=== PATIENT | female | born 1945 | race Caucasian/White ===

== ENCOUNTER → 2017-12-12 10:02 | Outpatient (CLI) | payer MEDICARE, SELFPAY ==
[2017-12-12 12:22] LABS: Alanine Aminotransferase 21 U/L (12-78); Albumin Level 3.7 gm/dL (3.4-5.0); Albumin/Globulin Ratio 1.2 (1.1-1.8); Alkaline Phosphatase 65 U/L (46-116); Anion Gap 13.7 mEq/L (5-15); Aspartate Amino Transferase 16 U/L (15-37); Bilirubin,Total 0.4 mg/dL (0.2-1.0); Blood Urea Nitrogen 11 mg/dL (7-18); Carbon Dioxide 27 mmol/L (21.0-32.0); Chloride 111 mmol/L (98-107); Creatinine,Serum 0.97 mg/dL (0.55-1.02); Estimated Glomerular Filt Rate 56 ml/min (>60); Free T4 (Free Thyroxine) 1.02 ng/dl (0.76-1.46); GFR (African American) 68 ML/MIN (>60); Globulin 3.1 gm/dl (1.3-3.2); Glucose 88 mg/dL (74-106); Potassium 3.7 mmoL/L (3.5-5.1); Sodium 148 mmol/L (136-145); T4 (Thyroxine) 8.9 ug/dl (4.7-13.3); Thyroid Stimulating Hormone 2.04 uIU/ml (0.358-3.740); Total Protein,Serum 6.8 gm/dL (6.4-8.2); Triiodothryronine (T3) Uptake 34 % (31-39)
[2017-12-13 05:19] LABS: Thyroid Peroxidase Antibodies 13 IU/mL (0-34)
[2017-12-13 19:11] LABS: Triiodothyronine (T3) Free 2.4 pg/mL (2.0-4.4)
[2017-12-15 02:17] LABS: Calcitonin <2.0 pg/mL (0.0-5.0)
[2018-03-06 20:00] LABS: Thyroid Stimulating Immunoglob <0.10
== END ==
PROVIDERS: PCP Nurse Practitioner; Visit Provider Otolaryngology
DX: E04.1 Nontoxic single thyroid nodule (principal); E03.9 Hypothyroidism, unspecified
CPT/HCPCS: 36415; 80053; 82308; 83520; 84436; 84439; 84443; 84479; 84481; 86376

== ENCOUNTER → 2017-12-22 09:52 | Outpatient (CLI) | payer MEDICARE, SELFPAY ==
--- NOTE | 2017-12-22 09:59 | US_ITS ---
US organ site (thyroid right lobe) US thyroid, US biopsy guidance : Ordering Physician: Ta Lyles MD HISTORY: ITS.REASON: Thyroid nodule NEOPLASM OF THYROIDthyroid. Nodule: 72 years: Female TECHNIQUE: Ultrasound thyroid with subsequent FNA left lobe nodule ========FINDINGS AND PROCEDURE: = ULTRASOUND THYROID-attention left lobe thyroid COMPARISON is made to previous ultrasound thyroid 08/20/2017 from this facility. The discrete mixed density thyroid nodule was seen at left lobe measuring up to 1.8 cm maximally. Mid and upper portion anterior left lobe. The mass was identified& best approach for access to perform aspiration biopsy of this nodule. Scanning by Dr. Burgos and technologist MW ULTRASOUND-GUIDED FNA BIOPSY-left thyroid nodule Following sterile preparation as well as local skin, and cautious deeper placement of Xylocaine anesthetic . Under ultrasound guidance the biopsy needle, was advanced to the nodule and positioned. Needle tip was observed passing into the nodule on each 3 FNA biopsies passes. FNA specimen material obtained and subsequently submitted to cytopathology. Patient tolerated procedure well. IMPRESSION: Dominant left lobe thyroid nodule identified and localized. . 1.8 cm cm nodule left lobe sampled with 3 FNA biopsy passes today CYTOPATHOLOGY REPORT: Negative for malignant cells. Benign follicular nodule
== END ==
PROVIDERS: Family Provider Emergency Medicine; PCP Nurse Practitioner; Visit Provider Otolaryngology
DX: E04.1 Nontoxic single thyroid nodule (principal)
CPT/HCPCS: 10022; 76536; 76942; 88173; 88305

== ENCOUNTER → 2018-04-06 07:34 | Outpatient (CLI) | payer MEDICARE, SELFPAY ==
--- NOTE | 2018-04-06 07:38 | US_ITS ---
US thyroid HISTORY: Follow-up thyroid nodule ITS.REASON: hx thyroid nodule left 1.8cm ORDERING PHYSICIAN: Ta Lyles MD PATIENT AGE: 73 years Comparison: 08/20/2017 FINDINGS: The right lobe is 2.8 x 1.6 x 1 cm. 3 x 4 mm hypoechoic nodule superiorly and medially not demonstrated on the previous exam 3 mm hypoechoic nodule lower pole unchanged. The left lobe is 3.9 x 1.4 x 2.1 cm. A complex nodule present in the mid aspect of the left lobe with both cystic and solid component measuring 1.8 x 1.3 cm not significantly changed. 7 mm isoechoic nodule medial aspect left lobe unchanged. IMPRESSION: Overall no change in the dominant complex cystic nodule of the left lobe of the thyroid gland with other small bilateral thyroid nodules noted
== END ==
PROVIDERS: Family Provider Emergency Medicine; PCP Nurse Practitioner; Visit Provider Otolaryngology
DX: E04.1 Nontoxic single thyroid nodule (principal)
CPT/HCPCS: 76536

== ENCOUNTER → 2018-07-24 07:54 | Outpatient (CLI) | payer MEDICARE, SELFPAY ==
--- NOTE | 2018-07-24 08:05 | NVE_ITS ---
Venous Exam Indications: 729.5 Pain in limb. IMPRESSIONS 1. There is no evidence of significant Reflux. 2. No evidence of deep or superficial vein thrombosis involving the left lower extremity History: Left lower extremity pain. Swelling of the left lower extremity. Left lower extremity venous duplex evaluation. Doppler flow study including spectral analysis, color and mitchell scale imaging. Location: Vascular laboratory. Patient status: Outpatient. Tables: Venous flow and imaging: + +-------+ + Location Overall Flow properties + +-------+ + Left common femoral Patent Normal phasicity; spontaneous; normal augmentation; compressible + +-------+ + Left saphenofemoral junction Patent Compressible + +-------+ + Left profunda femoral Patent Compressible + +-------+ + Left femoral Patent Normal phasicity; spontaneous; normal augmentation; compressible + +-------+ + Left greater saphenous Patent Normal phasicity; spontaneous; normal augmentation; compressible + +-------+ + Left popliteal Patent Normal phasicity; spontaneous; normal augmentation; compressible + +-------+ + Left posterior tibial Patent Compressible + +-------+ + Left peroneal Patent Compressible + +-------+ + Left gastrocnemius Patent Compressible + +-------+ + Left soleal Patent Compressible + +-------+ + (Report amended ) Electronically signed by: Varun Pisano [id number]
== END ==
PROVIDERS: Family Provider Emergency Medicine; PCP Nurse Practitioner; Visit Provider Nurse Practitioner
DX: M79.605 Pain in left leg (principal); M79.89 Other specified soft tissue disorders
CPT/HCPCS: 93971

== ENCOUNTER → 2018-09-21 12:56 | Outpatient (POV) | payer MEDICARE, SELFPAY | PROVIDERS: Visit Provider Nurse Practitioner Acute Care | DX: Z00.00 Encounter for general adult medical examination without abnormal findings (principal) ==

== ENCOUNTER → 2019-01-15 12:51 | Outpatient (CLI) | payer MEDICARE, SELFPAY ==
[2019-01-15 14:19] LABS: Alanine Aminotransferase 22 U/L (12-78); Albumin Level 3.8 gm/dL (3.4-5.0); Albumin/Globulin Ratio 1.3 (1.1-1.8); Alkaline Phosphatase 61 U/L (46-116); Anion Gap 13.4 mEq/L (5-15); Aspartate Amino Transferase 21 U/L (15-37); Bilirubin,Total 0.5 mg/dL (0.2-1.0); Blood Urea Nitrogen 11 mg/dL (7-18); Calcium 9.1 mg/dL (8.5-10.1); Carbon Dioxide 27 mmol/L (21.0-32.0); Chloride 108 mmol/L (98-107); Chol/HDL Ratio 2.9 (1-3.5); Cholesterol 187 mg/dL (140-200); Estimated Glomerular Filt Rate 70 ml/min (>60); Free T4 (Free Thyroxine) 0.88 ng/dl (0.76-1.46); GFR (African American) 85 ML/MIN (>60); Glucose 91 mg/dL (74-106); HDL Cholesterol 64 mg/dL (29-89); LDL Cholesterol 103 mg/dL (0-130); Potassium 4.4 mmoL/L (3.5-5.1); Sodium 144 mmol/L (136-145); Thyroid Stimulating Hormone 2.27 uIU/ml (0.358-3.740); Total Protein,Serum 6.8 gm/dL (6.4-8.2); Triglycerides 101 mg/dL (30-200); VLDL Cholesterol 20 mg/dL (0-40)
== END ==
PROVIDERS: Visit Provider Nurse Practitioner
DX: I10 Essential (primary) hypertension (principal); R60.9 Edema, unspecified; E78.2 Mixed hyperlipidemia; E03.9 Hypothyroidism, unspecified; R06.09 Other forms of dyspnea
CPT/HCPCS: 36415; 80053; 80061; 83880; 84439; 84443

== ENCOUNTER → 2019-03-30 16:02 | Outpatient (CLI) | payer MEDICARE, SELFPAY ==
[2019-03-30 16:51] LABS: Basophils % 0.6 % (0.1-2.0); Eosinophils # 0.9 K/mm3 (0.0-0.4); Eosinophils % 14.5 % (0.1-12.0); Hematocrit 38.8 % (37.0-47.0); Hemoglobin 13.1 g/dL (12.2-16.2); Lymphocytes # 2.1 K/mm3 (0.7-4.5); Lymphocytes % 34.2 % (10-50); Mean Corpuscular HGB Conc 33.7 g/dL (31.8-35.4); Mean Corpuscular Hemoglobin 28.3 pg (27.0-31.2); Mean Corpuscular Volume 83.9 fl (81-99); Monocytes # 0.4 K/mm3 (0.1-1.0); Monocytes % 5.8 % (1.7-9.3); Neutrophils # 2.7 K/mm3 (1.8-7.8); Neutrophils % 44.9 % (37.0-80.0); Platelet Count 275 K/mm3 (142-424); Red Blood Count 4.62 M/mm3 (4.20-5.40); Red Cell Distribution Width 13.6 % (11.5-17.5)
[2019-03-30 17:10] LABS: Anion Gap 14.5 mEq/L (5-15); Blood Urea Nitrogen 10 mg/dL (7-18); Carbon Dioxide 27 mmol/L (21.0-32.0); Chloride 107 mmol/L (98-107); Creatinine,Serum 0.91 mg/dL (0.55-1.02); Estimated Glomerular Filt Rate 60 ml/min (>60); GFR (African American) 73 ML/MIN (>60); Glucose 91 mg/dL (74-106); Potassium 4.5 mmoL/L (3.5-5.1); Sodium 144 mmol/L (136-145)
== END ==
PROVIDERS: Visit Provider Urology
DX: Z01.818 Encounter for other preprocedural examination (principal); N39.3 Stress incontinence (female) (male)
CPT/HCPCS: 36415; 80048; 85025

== ENCOUNTER 2019-04-01 11:50 | Day surgery (SDC) | payer MEDICARE, SELFPAY ==
[2019-03-30 13:28] VITALS: BMI 28.3
[2019-04-01] VITALS (10 sets, daily range): BP systolic 134–191; BP diastolic 63–96; PULSE 61–76; RESP 18; TEMP 36.3–36.7; O2SAT 98–100
--- NOTE | 2019-04-01 12:34 | P.PN_ITS ---
[facility] Anesthesia Checklist - Structural Data Admitted From: Home Planned Operative Procedure/s: tvto Consent for Planned Operative Procedure(s) Verified: Yes - Airway Assessment C-Spine Mobility Assessed: Yes TMJ Mobility Assessed: Yes Dentition: Dentures-good fit - Neurological Assessment Level of Consciousness: Awake, Alert, Appropriate - Anesthesia Plan Anesthesia Risk discussed: Yes Anesthesia Plan: Verified ASA Class: II Anesthesia Type: General [facility] History I have reviewed the patient's past medical history: Yes Medical History: Reports:: Asthma, Cancer (cervical), Hyperlipidemia, Hypertension, Lung Disease Denies:: Diabetes Mellitus Type 1, Diabetes Mellitus Type 2, Internal Pacemaker, MRSA, Seizures *Have you ever received a pneumonia vaccine?: Yes *Have you received a flu vaccine this season?: Yes Other Medical History: Reports: Arthritis. Denies: Blood Transfusion Reaction Other Surgeries: Yes: Hysterectomy-Total, Thyroidectomy, Other. No: Pacemaker Amputation: No - *Social History Educational Level: Completed GED/General Educational Development Smoking Status: Former smoker Tobacco Type: cigarettes # Packs/Day (cigarettes): 0 #Yrs smoked (if former smoker): 30 Alcohol Intake: never Alcohol Intake Frequency:: 0-2 drinks per day Substance Use Type: denies use *Occupational Status:: retired Housing: house Household Members: significant other *Travel in the last 8 weeks: None - Psychiatric History Expresses thoughts of harming self/others: None Suicide Plan Description: No Plan Family Hx:: Hypertension, Adopted
--- NOTE | 2019-04-01 14:48 | HMH.ANESI ---
[facility] Anesthesia Record Part I Intake, IV Amount: 400 Estimated blood loss (mL): 0 Urine output (mL): 0 Blood Products used (#): none Blood Pressure: 134/71 SaO2: 99 Pulse Rate: 74 Respiratory Rate: 18 Temperature: 97.3 F Patient is:: Awake, Stable Stable to PACU at:: 14:44
--- NOTE | 2019-04-01 14:49 | HMH.ANESII ---
[facility] Anesthesia Record Part II Discharge Time: 15:14 Destination: Surgical Day Care (OP Surgery) PACU nurse assessment reviewed?: Yes Patient Condition:: Good Anesthesia Complications:: None Swallowing reflex intact?: Yes Cyanosis?: No
--- NOTE | 2019-04-01 14:56 | HMH.OPNOTE ---
Date of procedure: 04/01/19 Pre-op Diagnosis:: Stress urinary incontinence Post-op Diagnosis:: Same Procedure performed:: Trans-obturator tape placement with cystoscopy Surgeon:: Philip Welch MD CLIENT SUPPORT REPRESENTATIVE:: Other Anesthesia: GETA Estimated blood loss (mL): 10 Clinical Note:: 74-year-old white female with a stress urinary incontinence Operative findings:: Patient with normal vaginal introitus and normal urethra with history of a stress urinary incontinence who desires treatment. Operative note:: Patient taken to the operating room after informed consent was obtained. He was placed on the operating table in the supine position general anesthesia administered. Preoperative antibiotics and sequential compression devices placed. She was then placed into the dorsolithotomy position prepped and draped in standard surgical fashion. A 16 [place] Willoughby catheter passed into the urethra and the bladder drained. The catheter was then clamped and placed on the abdomen. Local anesthetic placed into our thigh incisions which were at the insertion of the adductor longus and 8 and on a plane equal with the clitoris bilaterally. Local anesthetic also placed into the anterior vaginal wall. Stab incisions were made in the marked areas on the thigh. Incision was then made in the anterior vaginal wall and the periurethral space was developed sharply and bluntly with Metzenbaums and a finger dissection. However [employer] halo obtryx trocar then passed into the right thigh incision and around the issue pubic rami and brought through the vaginal incision guided by my finger which was in the incision and just under the ischio pubic ramus. There is no evidence of any vaginal injury. One end of the trans-obturator tape was placed onto the end of the trocar was brought back out through the skin. The left side was then performed in the same manner. The trocar was passed around the ischio pubic ramus and brought out through the vaginal incision. No evidence of vaginal fornix injury was noted. The other end of the sling was placed on a visit to the trocar and brought out through the skin incision. The tape was snugged up to the urethra and a clamp was placed between the urethra and the sling while we snugged it up. The ends of the sleeve were then removed from the sling. The clamp removed and there was noted to be good placement of the sling. The ends of the sling were cut off at the thigh and the vaginal wall incision was closed with a running 2-0 chromic. Dermabond placed on the thigh incisions and the back vaginal vagina was packed with vaginal packing. Sponge needle instrument counts were correct at the end the case. There is minimal blood loss. Willoughby catheter was kept in the bladder to the recovery room and a voiding trial will be performed prior. Instructions were given to remove the vaginal packing in the a.m. Condition: stable Disposition: PACU Specimens:: None Complications:: None
--- NOTE | 2019-04-01 15:24 | SUR.PHASEI ---
1515-60ml saline injected through mccarty catheter into bladder per MD orders.
== END 2019-04-01 16:20 | disposition home or self-care (01) ==
PROVIDERS: PCP Nurse Practitioner; Visit Provider Urology
PROC: 0TJB8ZZ Inspection of Bladder, Via Natural or Artificial Opening Endoscopic (ICD-10-PCS; CPT 52000; 2019-04-01 13:30)
DX: N39.3 Stress incontinence (female) (male) (principal)
CPT/HCPCS: 52005; 96374; C1771; J1956

== ENCOUNTER → 2019-12-15 10:23 | Outpatient (CLI) | payer MEDICARE, SELFPAY ==
--- NOTE | 2019-12-15 10:30 | XR_ITS ---
PROCEDURE: XR SHOULDER RT MIN 2V CLINICAL INDICATION: ACUTE SHOULDER PAIN COMPARISON: No exams were available for comparison FINDINGS: There are mild osteoarthritic changes of the acromioclavicular joint with mild subacromial stenosis. No acute fracture or dislocation. There is mild cortical irregularity of the greater tuberosity which may be seen with rotator cuff disease IMPRESSION: Mild osteoarthritis of the right acromioclavicular joint with subacromial stenosis Dictated by: Varun Pisano MD 12/15/2019 15:34 Electronically signed by Varun Pisano MD in [place] 12/15/2019 15:34
--- NOTE | 2019-12-15 10:30 | XR_ITS ---
PROCEDURE: XR HIP LT 2-3V W/PELVIS CLINICAL INDICATION: BILAT HIP PAIN COMPARISON: No exams were available for comparison FINDINGS: Are mild osteoarthritic changes the left hip. No fracture or dislocation. No lytic or blastic change IMPRESSION: Mild osteoarthritis Dictated by: Varun Pisano MD 12/15/2019 15:33 Electronically signed by Varun Pisano MD in [place] 12/15/2019 15:33
--- NOTE | 2019-12-15 10:30 | XR_ITS ---
PROCEDURE: XR HIP RT 2-3V W/PELVIS CLINICAL INDICATION: BILAT HIP PAIN COMPARISON: None FINDINGS: Mild osteoarthritic changes of the hip and SI joint. No fracture or dislocation. No lytic or blastic change IMPRESSION: Mild osteoarthritis Dictated by: Varun Pisano MD 12/15/2019 15:32 Electronically signed by Varun Pisano MD in [place] 12/15/2019 15:32
== END ==
PROVIDERS: PCP Nurse Practitioner; Visit Provider Nurse Practitioner
DX: M25.511 Pain in right shoulder (principal); M25.552 Pain in left hip; M25.551 Pain in right hip
CPT/HCPCS: 73030; 73502

== ENCOUNTER → 2019-12-22 15:39 | Outpatient (CLI) | payer MEDICARE, MEDICAID, SELFPAY ==
--- NOTE | 2019-12-22 15:42 | MR_ITS ---
PROCEDURE: MR SHOULDER RT WO CON CLINICAL INDICATION: DISORDER OF RIGHT ROTATOR CUFF COMPARISON: No exams were available for comparison TECHNIQUE: Routine multiplanar multisequence exam was performed. FINDINGS: There is a partial thickness tear of the supraspinatus tendon of the rotator cuff. There is also signal abnormality and thickness of the subscapularis tendon compatible with partial-thickness tear/tendinosis. A greater than normal amount of fluid is seen in the bicipital tendon sheath. Bicipital tendon is appropriately positioned. There is some internal signal within the substance of the bicipital tendon consistent with a partial longitudinal tear. Mild acromioclavicular joint arthropathy is noted. There is bone marrow edema in the distal clavicle and the acromion with fluid in the joint space and there is some bony hypertrophy projecting inferiorly off the distal clavicle which appears to contact the supraspinatus muscle with some impingement. IMPRESSION: Partial-thickness tear of supraspinatus tendon of rotator cuff and partial longitudinal tear bicipital tendon. Tendinosis versus partial tearing of subscapularis tendon. Acromioclavicular joint arthropathy with mild impingement of rotator cuff structures. Dictated by: David Elkins 12/22/2019 17:36 Electronically signed by David Elkins in [place] 12/22/2019 17:36
== END ==
PROVIDERS: PCP Nurse Practitioner; Visit Provider Nurse Practitioner
DX: M67.911 Unspecified disorder of synovium and tendon, right shoulder (principal)
CPT/HCPCS: 73221

== ENCOUNTER 2020-05-16 16:52 | Emergency (ER) | payer MEDICARE, SELFPAY ==
--- NOTE | 2020-05-16 18:13 | HMH.EDUTC ---
[facility] Disposition Clinical Impression: UTI (urinary tract infection) Qualifiers: Urinary tract infection type: site unspecified Hematuria presence: without hematuria Qualified Code(s): N39.0 - Urinary tract infection, site not specified Low back pain Qualifiers: Chronicity: acute Back pain laterality: bilateral Sciatica presence: without sciatica Qualified Code(s): M54.5 - Low back pain Disposition: Home, Self-Care Condition on Discharge: Good Instructions: Urinary Tract Infection, DI for Urinary Tract Infection (UTI) Additional Instructions: Drink plenty of fluids. Take tylenol or ibuprofen for pain or fever. Take the medications as directed. Follow up with your regular doctor. GO TO THE ER FOR ANY WORSENING SYMPTOMS Prescriptions: Sulfamethoxazole/Trimethoprim [Bactrim DS tablet] 1 each PO BID 7 Days #14 tab Transmission Status: Received by [facility] #[id number] Phenazopyridine HCl [Pyridium 200mg Tablet] 200 pow PO TID #6 tab Transmission Status: Received by [facility] #[id number] Referrals: Muriel Etienne APRN [Primary Care Provider] - Time of Disposition: 18:22 Medical Decision Making - Medical Records Medical records reviewed: No: I reviewed the patient's medical records. - Thony Inquiry Pt receiving controlled substance: No Vital Signs: 05/16/20 18:14 05/16/20 18:22 Temperature 98.6 F Temperature Source Oral Pulse Rate [Right Brachial] 61 Respiratory Rate 18 Blood Pressure [Right Arm] 162/96 H Blood Pressure Mean [Right Arm] 118 Blood Pressure Source [Right Arm] Automatic Cuff Blood Pressure Position [Right Arm] Sitting 02 Sat by Pulse Oximetry 99 Oxygen Delivery Method Room Air - Lab Data Lab results reviewed: Yes: I reviewed the patient's lab results. Orders (Tests/Meds): ORDERS Category Date Time Status Urine Culture Stat Micro 05/16/20 18:00 Ordered [facility] HPI - General Stated complaint: BACK PAIN,,POSSIBLE BLadder Time Seen by Provider: 05/16/20 18:13 - History of Present Illness Provider Complaint: She c/o low back pain on and off for the past couple of weeks. She denies any fall but she did have to lift on her boyfriend when he almost fell. She is also having dysuria and urinary frequentcy. - Related Data Home Medications Medication Instructions Recorded Confirmed ipratropium 20 mcg-albuterol 100 1 puff INHALATION Q6H 11/10/17 01/10/20 mcg/actuation mist for inhalation levothyroxine 25 mcg capsule 25 mcg PO DAILY 11/10/17 01/10/20 lisinopril 40 mg tablet 40 mg PO QDAY 11/10/17 01/10/20 Omeprazole [Omeprazole 20mg 20 mg PO DAILY 07/20/18 01/10/20 Capsule] Oxybutynin Chloride [Oxybutynin 15 mg PO DAILY 07/20/18 01/10/20 Chloride ER] Temazepam [Restoril 15mg capsule] 15 mg PO DAILY 07/20/18 01/10/20 simvastatin 40 mg tablet 20 mg PO DAILY tab 02/25/19 01/10/20 cholecalciferol (vitamin D3) 1,250 PO 01/10/20 01/10/20 mcg (50,000 unit) capsule Previous Rx's Medication Instructions Recorded Promethazine HCl [Phenergan 25mg 25 mg PO Q6HP PRN #12 tab 10/13/18 tab] Phenazopyridine HCl [Pyridium 200 pow PO TID #6 tab 05/16/20 200mg Tablet] Sulfamethoxazole/Trimethoprim 1 each PO BID 7 Days #14 tab 05/16/20 [Bactrim DS tablet] Allergies Allergy/AdvReac Type Severity Reaction Status Date / Time codeine [CODEINE] Allergy Unknown NA-NAUSEA/V Verified 01/10/20 09:15 OMITING Penicillins [PENICILLINS] Allergy Unknown I-HIVES Verified 01/10/20 09:15 [facility] History - Hepatitis A Screen Attestation statement:: This patient has been screened for Hepatitis A risk factors. I have reviewed the patient's past medical history: Yes Medical History: Reports:: Asthma, Cancer, Hyperlipidemia, Hypertension, Lung Disease Denies:: Diabetes Mellitus Type 1, Diabetes Mellitus Type 2, Internal Pacemaker, MRSA, Seizures Other Medical History: Reports: Arthritis. Denies: Blood Transfusion React
[2020-05-16 18:14] VITALS: BP 162/96; PULSE 61; RESP 18; O2SAT 99; BMI 24.7
[2020-05-16 18:22] VITALS: TEMP 37
[2020-05-16 18:34] VITALS: BP 162/96; PULSE 61; RESP 18; TEMP 37; O2SAT 99
[2020-05-16 19:52] LABS: Apearance,Urine Clear (Clear); Bilirubin,Urine Negative (Negative); Blood, Urine Negative (Negative); Color,Urine Yellow (Yellow); Glucose,Urine (UA) Negative (Negative); Ketones,Urine Negative (Negative); Protein,Urine Trace (Negative); UTC Leukocyte Esterase,Urine Trace (Negative); UTC Nitrate,Urine Positive (Negative); Urobilinogen,Urine 1 EU/dl (0.2)
== END 2020-05-16 18:35 | disposition home or self-care (01) ==
PROVIDERS: Emergency Provider Nurse Practitioner Family; PCP Nurse Practitioner
DX: N30.00 Acute cystitis without hematuria (principal); I10 Essential (primary) hypertension; K21.9 Gastro-esophageal reflux disease without esophagitis; E78.5 Hyperlipidemia, unspecified; Z88.0 Allergy status to penicillin; Z88.5 Allergy status to narcotic agent; Z90.49 Acquired absence of other specified parts of digestive tract; Z90.79 Acquired absence of other genital organ(s)
CPT/HCPCS: 81003; 87086; 87088; 87186; 99202

== ENCOUNTER 2020-12-29 18:54 | Emergency (ER) | payer MEDICARE, SELFPAY ==
--- NOTE | 2020-12-29 19:04 | XR_ITS ---
PROCEDURE: XR SHOULDER RT MIN 2V CLINICAL INDICATION: FALL Posttraumatic pain COMPARISON: CR XR SHOULDER RT MIN 2V from 12/15/2019 FINDINGS: No fracture or dislocation. No lytic or blastic change. There is normal mineralization. Osteoarthritic changes present at the acromioclavicular and glenohumeral joint. There is some minimal cortical irregularity of the greater tuberosity which may be seen with rotator cuff disease. Other findings:None. IMPRESSION: Degenerative change, no acute finding Dictated by: Varun Pisano MD 12/30/2020 08:24 Varun Pisano MD in [place] 12/30/2020 08:24
[2020-12-29 19:22] VITALS: BP 181/86; PULSE 68; RESP 20; TEMP 36.9; O2SAT 98; BMI 25.0
--- NOTE | 2020-12-29 19:51 | HMH.EDUTC ---
[facility] [place] Disposition Clinical Impression: Right shoulder pain Qualifiers: Chronicity: acute Qualified Code(s): M25.511 - Pain in right shoulder Disposition: Home, Self-Care Condition on Discharge: Good Instructions: DI for Shoulder Pain Referrals: Muriel Etienne APRN [Primary Care Provider] - Time of Disposition: 19:56 Medical Decision Making - Thony Inquiry Pt receiving controlled substance: No Vital Signs: 12/29/20 19:22 Temperature 98.4 F Temperature Source Oral Pulse Rate [Right Brachial] 68 Respiratory Rate 20 Blood Pressure [Right Arm] 181/86 H Blood Pressure Mean [Right Arm] 117 Blood Pressure Source [Right Arm] Automatic Cuff Blood Pressure Position [Right Arm] Sitting 02 Sat by Pulse Oximetry 98 Oxygen Delivery Method Room Air Orders (Tests/Meds): ORDERS Category Date Time Status XR shoulder RT min 2V Stat Exams 12/29/20 19:04 Taken - Radiology Data #1 Image(s): Shoulder Image Reviewed: Yes I reviewed the patient's radiology image Preliminary Findings: Normal/NAD, No Fracture Seen [facility] [place] HPI - General Stated complaint: AO 12/29@1700 fell injured R Shoulder Time Seen by Provider: 12/29/20 19:51 Mode of Arrival: Ambulatory Source of Information: Patient Limitations: No Limitations Description of Symptoms (Recalled from Triage Doc. by RN): fell outisde and injuried right shoulder HEENT Symptoms (Recalled from RN notes): No Resp Symptoms (Recalled from RN notes): No Skin Symptoms (Recalled from RN notes): No MS Symptoms (Recalled from RN notes): Yes Functional Status (Recalled from RN notes): wnl - History of Present Illness Provider Complaint: Right shoulder pain. Fell into car door a few hours ago. Has rotator cuff problems on that side already but wants to make sure she didn't break anything. Onset (ago): hour(s) (3) Location: right, upper extremity Relieving factors: none Exacerbating factors: none Associated symptoms: denies other symptoms Treatments prior to arrival: none - Related Data Home Medications Medication Instructions Recorded Confirmed ipratropium 20 mcg-albuterol 100 1 puff INHALATION Q6H 11/10/17 01/10/20 mcg/actuation mist for inhalation levothyroxine 25 mcg capsule 25 mcg PO DAILY 11/10/17 01/10/20 lisinopril 40 mg tablet 40 mg PO QDAY 11/10/17 01/10/20 Omeprazole [Omeprazole 20mg 20 mg PO DAILY 07/20/18 01/10/20 Capsule] Oxybutynin Chloride [Oxybutynin 15 mg PO DAILY 07/20/18 01/10/20 Chloride ER] Temazepam [Restoril 15mg capsule] 15 mg PO DAILY 07/20/18 01/10/20 simvastatin 40 mg tablet 20 mg PO DAILY tab 02/25/19 01/10/20 cholecalciferol (vitamin D3) 1,250 PO 01/10/20 01/10/20 mcg (50,000 unit) capsule Previous Rx's Medication Instructions Recorded Promethazine HCl [Phenergan 25mg 25 mg PO Q6HP PRN #12 tab 10/13/18 tab] Phenazopyridine HCl [Pyridium 200 pow PO TID #6 tab 05/16/20 200mg Tablet] Sulfamethoxazole/Trimethoprim 1 each PO BID 7 Days #14 tab 05/16/20 [Bactrim DS tablet] Allergies Allergy/AdvReac Type Severity Reaction Status Date / Time codeine [CODEINE] Allergy Unknown NA-NAUSEA/V Verified 01/10/20 09:15 OMITING Penicillins [PENICILLINS] Allergy Unknown I-HIVES Verified 01/10/20 09:15 - Worker's Comp Is this a Worker's Comp case?: No [facility] History - Hepatitis A Screen Drug use history?: No High risk sexual behaviors?: No History of sexually transmitted infection?: No Currently employed?: No Childcare worker?: No Do you have indoor plumbing?: Yes Do you have electricity?: Yes Attestation statement:: This patient has been screened for Hepatitis A risk factors. I have reviewed the patient's past medical history: Yes Medical History: Reports:: Asthma, Cancer, Hyperlipidemia, Hypertension, Lung Disease Denies:: Diabetes Mellitus Type 1, Diabetes Mellitus Type 2, Internal Pacemaker, MRSA, Seizures Other Medical History: Reports: Arthritis. Denies: Blood Transfusion
[2020-12-29 20:03] VITALS: BP 181/86; PULSE 68; RESP 20; TEMP 36.9; O2SAT 98
== END 2020-12-29 20:07 | disposition home or self-care (01) ==
PROVIDERS: Emergency Provider Physician Assistant; PCP Nurse Practitioner
DX: M25.511 Pain in right shoulder (principal); W18.09XA Striking against other object with subsequent fall, initial encounter; Y92.89 Other specified places as the place of occurrence of the external cause; I10 Essential (primary) hypertension; E78.5 Hyperlipidemia, unspecified; J44.9 Chronic obstructive pulmonary disease, unspecified; Z88.0 Allergy status to penicillin; Z88.5 Allergy status to narcotic agent
CPT/HCPCS: G0463; 73030; 99202